=== PATIENT | male | born 1980 | race African-American/Black ===

== ENCOUNTER 2017-08-04 07:22 | Emergency (ER) | payer SELFPAY ==
[~2017-08-04 07:22] MED LIST: DICL50TA3 PO; ROBA750T PO
[2017-08-04 07:28] VITALS: BP 124/63; PULSE 81; RESP 14; TEMP 99; O2SAT 99
[2017-08-04] MEDS ORDERED: AMOX875T PO (08:01)
[2017-08-04] MEDS ORDERED: MAGICPED SWISH-SWAL (08:01)
[2017-08-04] MEDS ORDERED: IBUP1TAB7 PO (08:01)
--- NOTE | 2017-08-04 08:01 | PD ---
HPI Chief Complaint: ENT Complaint Time Seen by Provider: 07:44 Travel History International Travel<30 days: No Contact w/Intl Traveler<30days: No Traveled to known affect area: No History of Present Illness HPI 37-year-old male presents to the emergency department with complaint of a sore throat 3 days. Denies lump in throat, difficulty swallowing, unusual drooling. Reports painful swallowing. Reports subjective fevers. Denies headache, vomiting, abdominal pain. Reports nausea. Denies cough, nasal congestion, ear pain. Voice is muffled. No others with similar symptoms. Rates pain 10/10 with swallowing. Better without swallowing, but still painful. Has not taken any medications or try any treatments to alleviate his symptoms. No known allergies. No primary care provider. Denies significant past medical history. Has no other medical complaints. No other modifying factors or associated signs and symptoms. PFSH Past Medical History Musculoskeletal: Yes (RIGHT SHOULDER ROTATOR CUFF TEAR) Social History Alcohol Use: Yes (SOCIALLY) Tobacco Use: Yes (1 PPD) Substance Use: No Allergies-Medications (Allergen,Severity, Reaction): Coded Allergies: No Known Allergies (Verified Adverse Reaction, Unknown, 08/04/17) Reported Meds & Prescriptions Reported Meds & Active Scripts Active Magic Mouthwash Pediatric/Adult Liq (Lidocaine/Diphenhydr/Alum/Mg/Simeth) 60 Ml Susp 5 Ml SWISH-SWAL Q3HR PRN Each 5mL contains: Diphenydramine 4.5mg, Viscous Lidocaine 2% 10mg, Maalox Advanced Regular Strength 2.7ml Ibuprofen 800 Mg Tab 800 Mg PO Q6HR PRN Amoxicillin 875 Mg Tab 875 Mg PO BID 10 Days Review of Systems Except as stated in HPI: all other systems reviewed are Neg Physical Exam Narrative GENERAL: Well-nourished, well-developed black male patient, in no acute distress SKIN: Warm and dry. No rash. HEAD: Atraumatic. Normocephalic. EYES: Pupils equal and round at 3 mm with brisk reaction. No scleral icterus. No injection or drainage. PERRLA. ENT: Mucosa pink and dry. Pharynx with 2+ tonsils; with erythema, exudate, and edema. No uvular edema. No uvular, palatal, or tonsillar deviation. Airway patent. Voice is hoarse. EARS: Bilateral pinnae and external canals appear within normal limits. Bilateral tympanic membranes without erythema, dullness or perforation.. NECK: Trachea midline. Anterior cervical lymphadenopathy and tenderness. CARDIOVASCULAR: Regular rate RESPIRATORY: No accessory muscle use. GASTROINTESTINAL: Flat. MUSCULOSKELETAL: No obvious deformities. No clubbing. No cyanosis. No edema. NEUROLOGICAL: Awake and alert. Oriented 3. No obvious cranial nerve deficits. Motor grossly within normal limits. Normal speech. Moves all extremities. PSYCHIATRIC: Appropriate mood and affect; insight and judgment normal. Data Data Last Documented VS Vital Signs Date Time Temp Pulse Resp B/P (MAP) Pulse Ox O2 Delivery O2 Flow Rate FiO2 08/04/17 07:28 99.0 81 14 124/63 (83) 99 Orders Orders Group A Rapid Strep Screen (08/04/17 07:45) Ibuprofen (Motrin) (08/04/17 08:15) Amoxicillin (Trimox) (08/04/17 08:15) Ed Discharge Order (08/04/17 08:02) MDM Medical Decision Making Medical Screen Exam Complete: Yes Emergency Medical Condition: Yes Medical Record Reviewed: Yes Differential Diagnosis Strep pharyngitis, exudative pharyngitis, viral pharyngitis, less likely peritonsillar abscess Narrative Course 37-year-old male physical exam consistent with exudative pharyngitis. Patient is afebrile and nontoxic-appearing. Reports subjective fevers. Denies vomiting. Denies lump in throat, difficulty swallowing, unusual drooling. Ibuprofen and amoxicillin administered in the ER. Rapid strep pending. Ibuprofen, amoxicillin, Magic mouthwash prescribed for home. Instructed patient to follow up with primary care provider. Patient verbalizes understanding and agreement with treatment plan. Patient is medically cleared and stable for discharge. Discussed reasons to return to the emergency department. Patient agrees with treatment plan. The patients vital signs are stable and the patient is stable for outpatient follow-up and treatment. Patient discharged home, stable and in no acute distress. Diagnosis Primary Impression: Exudative pharyngitis Referrals: [facility] Primary Care Physician Patient Instructions: General Instructions, Pharyngitis (ED), Strep Throat (ED) Departure Forms: Tests/Procedures, Work Release Enter return to work date: Aug 05, 2017 Additional Instructions: Take Antibiotics as prescribed and complete full course of antibiotics Throw away and change your toothbrush 24 hours after starting antibiotics Get plenty of sleep/rest Rest your voice Drink plenty of fluids to prevent dehydration Use warm saltwater gargles to soothe throat pain Use an air humidifier/turn off ceiling fans Use throat lozenges as needed for sore throat Use ibuprofen or acetaminophen as needed to relieve pain and fever Follow-up with your primary care provider within 2-4 days Return immediately to the emergency department with worsening of symptoms Med/Other Pt SpecificInfo: Prescription(s) given Scripts Tzzkrbxeofokzmp-Vctgjooak-Dim-Alum-Simeth Liq (Magic Mouthwash Pediatric/Adult Liq) 60 Ml Susp 5 ML SWISH-SWAL Q3HR Y for SORE THROAT, #60 ML 0 Refills Each 5mL contains: Diphenydramine 4.5mg, Viscous Lidocaine 2% 10mg, Maalox Advanced Regular Strength 2.7ml Prov: Merary Duckworth 08/04/17 Ibuprofen (Ibuprofen) 800 Mg Tab 800 MG PO Q6HR Y for PAIN, #30 TAB 0 Refills Prov: Merary Duckworth 08/04/17 Amoxicillin (Amoxicillin) 875 Mg Tab 875 MG PO BID for Infection for 10 Days, #20 TAB 0 Refills Prov: Merary Duckworth 08/04/17 Disposition: 01 DISCHARGE HOME Condition: Stable Merary Duckworth Aug 04, 2017 08:01
[2017-08-04] MEDS ORDERED: AMOXICILLIN 875 MG TAB PO ONE (08:15)
[2017-08-04] MEDS ORDERED: IBUPROFEN 800 MG TAB PO ONE (08:15)
== END 2017-08-04 09:05 | disposition home or self-care (01) ==
LOC: NEPD 07:22
DX: J02.0 Streptococcal pharyngitis (principal); B95.0 Streptococcus, group A, as the cause of diseases classified elsewhere; F17.200 Nicotine dependence, unspecified, uncomplicated
CPT/HCPCS: 87880; 99283